=== PATIENT | female | born 1970 | race Caucasian/White ===

== ENCOUNTER 2023-05-06 07:51 | Day surgery (SDC) | payer OTHER, MEDICAID ==
[~2023-05-06] VITALS: Ht 180.3 cm; Wt 83.9 kg
[2023-05-06] MEDS ORDERED: fentaNYL CITRATE/PF 100 MCG/2 ML AMP ONE ×2 (09:24→10:06)
[2023-05-06] MEDS ORDERED: MIDAZOLAM HCL 5 MG/5 ML VIAL ONE ×2 (09:24→10:06)
[2023-05-06 12:33] VITALS: O2SAT 99
[2023-05-06 14:04] VITALS: BP_SYST 148; PULSE 93; RESP 18
== END 2023-05-06 12:29 | disposition home or self-care (01) ==
LOC: SDS 07:51 → SMU 08:17 → SDS 12:29
PROVIDERS: ATTEND Student in an Organized Health Care Education/Training Program
DX: R19.7 Diarrhea, unspecified (principal); K64.8 Other hemorrhoids; R14.0 Abdominal distension (gaseous); I12.0 Hypertensive chronic kidney disease with stage 5 chronic kidney disease or end stage renal disease; N18.6 End stage renal disease; E11.22 Type 2 diabetes mellitus with diabetic chronic kidney disease; E78.5 Hyperlipidemia, unspecified; F41.9 Anxiety disorder, unspecified; G40.909 Epilepsy, unspecified, not intractable, without status epilepticus; Z79.899 Other long term (current) drug therapy
CPT/HCPCS: 45380; 99152; 88305; 99153; 82962; G0378; J2250; J3010

== ENCOUNTER 2024-01-07 22:57 | Emergency (ER) | payer OTHER, MEDICAID ==
[~2024-01-07] VITALS: Ht 180.3 cm; Wt 81.6 kg
[2024-01-07 23:10] VITALS: BP_SYST 154; PULSE 99; RESP 18; TEMP 98.3; O2SAT 94
[2024-01-08 01:33] LABS: BASOPHILS # (AUTO) 0.1 K/uL (0.0-0.2); BASOPHILS % (AUTO) 1.3 % (0.0-2.0); EOSINOPHILS # (AUTO) 0.4 K/uL (0.0-0.4); EOSINOPHILS % (AUTO) 7.4 % (0.0-4.0); HEMATOCRIT 35.1 % (36-48); HEMOGLOBIN 11.9 g/dL (12.0-16.0); LYMPHOCYTES # (AUTO) 1.6 K/uL (1.0-5.5); MEAN CORPUSCULAR HEMOGLOBIN 32 pg (27-31); MEAN CORPUSCULAR HGB CONC 34 % (32-36); MEAN CORPUSCULAR VOLUME 93 fL (79.0-98.0); MONOCYTES # (AUTO) 0.5 K/uL (0.0-1.0); MONOCYTES % (AUTO) 9.1 % (1.7-9.3); NEUTROPHILS # (AUTO) 2.6 K/uL (1.8-7.7); NEUTROPHILS % (AUTO) 51.2 % (40.0-70.0); PLATELET COUNT (AUTO) 109 K/uL (130-430); RED BLOOD CELL COUNT(AUTO) 3.76 MIL/uL (4.2-6.2); RED CELL DISTRIBUTION WIDTH 16.8 % (9.0-15.0)
[2024-01-08 01:49] LABS: CREATININE 1.9 mg/dL (0.55-1.30); POTASSIUM 3.7 mmol/L (3.5-5.1)
[2024-01-08 01:54] LABS: INR 1.1 (0.8-1.2); PROTHROMBIN TIME 11.9 SECS (9.5-12.5)
[2024-01-08] MEDS ORDERED: BACITRACIN 1 GM OINT TP ONE (01:56)
[2024-01-08] MEDS: MORPHINE 2 MG/ML INJ. SYRINGE IM ONE (02:15)
[2024-01-08 03:15] VITALS: BP_SYST 135; PULSE 99; RESP 18; TEMP 97.6; O2SAT 99
== END 2024-01-08 03:15 | disposition home or self-care (01) ==
LOC: SED 22:57
DX: N18.6 End stage renal disease (principal); G89.29 Other chronic pain; M79.602 Pain in left arm; Z99.2 Dependence on renal dialysis
CPT/HCPCS: 99283; 80048; 85025; 85610; 85730; 36415; 12001; 96372; J2270

== ENCOUNTER 2024-01-14 08:32 | Emergency (ER) | payer OTHER, MEDICAID ==
[~2024-01-14] VITALS: Ht 162.6 cm; Wt 85.3 kg
[2024-01-14 08:32] VITALS: BP_SYST 154; PULSE 110; RESP 18; TEMP 97.6; O2SAT 96
[2024-01-14 09:17] LABS: BASOPHILS % (AUTO) 0.9 % (0.0-2.0); EOSINOPHILS # (AUTO) 0.5 K/uL (0.0-0.4); HEMATOCRIT 32.7 % (36-48); HEMOGLOBIN 10.8 g/dL (12.0-16.0); LYMPHOCYTES # (AUTO) 1.6 K/uL (1.0-5.5); LYMPHOCYTES % (AUTO) 30.8 % (20.5-51.5); MEAN CORPUSCULAR HEMOGLOBIN 32 pg (27-31); MEAN CORPUSCULAR HGB CONC 33 % (32-36); MEAN CORPUSCULAR VOLUME 96 fL (79.0-98.0); MONOCYTES # (AUTO) 0.4 K/uL (0.0-1.0); NEUTROPHILS # (AUTO) 2.6 K/uL (1.8-7.7); NEUTROPHILS % (AUTO) 51.3 % (40.0-70.0); PLATELET COUNT (AUTO) 135 K/uL (130-430); RED BLOOD CELL COUNT(AUTO) 3.42 MIL/uL (4.2-6.2); RED CELL DISTRIBUTION WIDTH 17.7 % (9.0-15.0); WHITE BLOOD COUNT (AUTO) 5.1 K/uL (4.8-10.8)
[2024-01-14 09:23] LABS: CALCIUM 9.3 mg/dL (8.4-11.0); CREATININE 2.6 mg/dL (0.55-1.30); POTASSIUM 5.2 mmol/L (3.5-5.1)
[2024-01-14] MEDS: levETIRAcetam 500 MG TABLET PO ONE (10:13)
[2024-01-14 12:49] VITALS: BP_SYST 138; PULSE 113; RESP 13; TEMP 98; O2SAT 92
== END 2024-01-14 12:20 ==
LOC: SED 08:32
DX: R56.9 Unspecified convulsions (principal); E87.5 Hyperkalemia; I13.2 Hypertensive heart and chronic kidney disease with heart failure and with stage 5 chronic kidney disease, or end stage renal disease; N18.6 End stage renal disease; E11.22 Type 2 diabetes mellitus with diabetic chronic kidney disease; Z99.2 Dependence on renal dialysis; Z87.448 Personal history of other diseases of urinary system
CPT/HCPCS: 36415; 80048; 82948; 83605; 85025; 93005; 99284